=== PATIENT | male | born 2000 | race Caucasian/White ===

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

== ENCOUNTER 2019-05-16 19:24 | Emergency (ER) | payer BC ==
[2019-05-16] MEDS ORDERED: methylPREDNISolone SUCCINATE 125 MG/2 ML VIAL IVP STA (19:42)
[2019-05-16] MEDS ORDERED: ALBUTEROL NEB 2.5 MG/3 ML INH STA (19:43)
--- NOTE | 2019-05-16 19:50 | ED Physician Documentation ---
History of Present Illness - Stated complaint Stated Complaint: SOA - Chief complaint Chief Complaint: Resp - Additonal information Additional information: This is a 18-year-old male who denies past medical history presents with shortness of breath. He has had a bit of shortness of breath throughout the week and it worsened today. He denies any history of asthma or COPD. He vapes once in a while, denies smoking. He denies any chest pain, fever. he has had a cough for the last several days. No leg swelling. He does have a history of environmental allergies. No hemoptysis or leg swelling. Review of Systems Constitutional: denies: Fever Cardiac: denies: Chest pain / pressure Respiratory: reports: Dyspnea GI: denies: Abdominal Pain, Vomiting : denies: Dysuria Skin: denies: Rash Neurologic: denies: Generalized weakness Immunocompromised: denies: Immunocompromised PD PAST MEDICAL HISTORY - Past Medical History Past Medical History: No Cardiovascular: None Respiratory: None Neuro: None Endocrine/Autoimmune: None GI: None : None HEENT: None Psych: None Musculoskeletal: None Derm: None - Past Surgical History Past Surgical History: No - Present Medications Home Medications: Ambulatory Orders Medication Instructions Recorded Confirmed Albuterol Sulf [Ventolin Hfa 1 - 2 puffs INH Q4HR PRN #1 inhaler 05/16/19 Inhaler] predniSONE [Prednisone] 40 mg PO DAILY #6 tablet 05/16/19 - Allergies Allergies/Adverse Reactions: Allergies Allergy/AdvReac Type Severity Reaction Status Date / Time No Known Drug Allergies Allergy Verified 05/16/19 19:33 - Social History Does the pt smoke?: No Smoking Status: Never smoker Does the pt drink ETOH?: No Does the pt have substance abuse?: No - Immunizations Immunizations are current?: Yes - POLST Patient has POLST: No PD ED PE NORMAL - Vitals Vital signs reviewed: Yes - General General: Alert and oriented X 3 - HEENT HEENT: PERRL - Neck Neck: Supple, no meningeal sign - Cardiac Cardiac: No murmur, Other (Tachycardic, regular rhythm) - Respiratory Respiratory: Other (Diffuse expiratory wheezing bilaterally) - Abdomen Abdomen: Normal bowel sounds, Soft, Non tender, Non distended - Derm Derm: Warm and dry - Extremities Extremities: No deformity - Neuro Neuro: Alert and oriented X 3 - Psych Psych: Normal mood, Normal affect Results - Vitals Vitals: Vital Signs - 24 hr 05/16/19 05/16/19 05/16/19 19:28 19:56 19:57 Temperature 37.1 C Heart Rate 109 H 102 H Respiratory 19 18 16 Rate Blood Pressure 143/89 H O2 Saturation 95 05/16/19 05/16/19 05/16/19 20:11 21:14 21:25 Temperature Heart Rate 83 88 92 Respiratory 17 16 16 Rate Blood Pressure 122/80 126/85 H O2 Saturation 96 95 Oxygen O2 Source Room air - EKG (time done) 19:54 Other comments: Other comments (Rate 94, rhythm sinus, no significant ST elevation on my interpretation, no ST depression, intervals within normal limits.) - Labs Labs: Laboratory Tests 05/16/19 05/16/19 05/16/19 20:00 20:00 20:00 WBC 12.3 H RBC 5.80 Hgb 16.2 Hct 47.3 MCV 81.6 MCH 27.9 MCHC 34.2 RDW 13.6 Plt Count 422 MPV 9.7 Neut # (Auto) Not Reportable Lymph # (Auto) Not Reportable [place] # (Auto) Not Reportable Eos # (Auto) Not Reportable Baso # (Auto) Not Reportable Absolute Nucleated RBC Not Reportable Total Counted 100 Band Neuts % (Manual) 1 Abnorm Lymph % (Manual) 0 Nucleated RBC % Not Reportable Neutrophils # (Manual) 8.7 H Lymphocytes # (Manual) 1.6 Monocytes # (Manual) 0.9 Eosinophils # (Manual) 1.1 H Basophils # (Manual) 0.0 Differential Comment MANUAL DIFFERENTIAL Manual Slide Review Indicated WBC Morphology NORMAL APPEARANCE Platelet Estimate NORMAL (130-450,000) Platelet Morphology NORMAL APPEARANCE RBC Morph Micro Appear NORMAL APPEARANCE Sodium 135 Potassium 4.0 Chloride 100 L Carbon Dioxide 24 Anion Gap 11.0 BUN 14 Creatinine 0.9 Estimated GFR (MDRD) 109 Glucose 99 Calcium 9.6 Total Bilirubin 1.2 H AST 30 ALT 31 Alkaline Phosphatase 76 Troponin I High Sens < 2.3 L Total Protein 8.8 H Albumin 5.0 Globulin 3.8 Albumin/Globulin Ratio 1.3 Lipase 26 - Rads (name of study) CXR Radiology: Other (No acute cardiopulmonary abnormality) PD MEDICAL DECISION MAKING - ED course Complexity details: considered differential (Asthma, reactive airway disease, pneumonia, pneumothorax, coronavirus, PE) ED course: Patient arrives tachycardic, he has diffuse expiratory wheezing. IV was inserted, labs were drawn, patient was placed on the monitor. He was given alb uterol via metered-dose inhaler, and had had near immediate improvement in his symptoms. On repeat evaluation his wheezing has improved. His EKG does not show convincing signs of ischemia or dysrhythmia, troponin is negative, patient does not have chest pain, cardiac etiology of his shortness of breath is highly unlikely. Labs show a mild leukocytosis which is nonspecific and may be demargination due to his respiratory distress, CMP is unremarkable. X-ray shows no acute cardiopulmonary abnormality. We does not have a clear history of asthma, he does have environmental allergies, and reactive airway disease/asthma does appear most likely. We will swab him for coronavirus given his cough, though he has not had fever. Patient was observed in the emergency department and continued to be well-appearing, his breathing was normal, his tachycardia resolved, ox saturation is excellent on room air, and his lungs are clear. He would not be able to go to a pharmacy to get an albuterol inhaler tonight, so we gave him additional albuterol treatment before discharge. He received Solu- Medrol while here and I prescribed him a 3-day burst of prednisone as well. I discussed primary care follow-up, return precautions to the emergency department, and patient was discharged in very good condition. Departure - Departure Disposition: 01 Home, Self Care Clinical Impression: Reactive airway disease with wheezing Qualifiers: Asthma severity: unspecified severity Asthma persistence: unspecified Asthma complication type: with acute exacerbation Qualified Code(s): J45.901 - Unspecified asthma with (acute) exacerbation Condition: Good Prescriptions: Albuterol Sulf [Ventolin Hfa Inhaler] 1 - 2 puffs INH Q4HR PRN #1 inhaler PRN Reason: Shortness Of Air/Wheezing predniSONE [Prednisone] 40 mg PO DAILY #6 tablet Comments: You were seen today for wheezing and shortness of breath, your chest x-ray and your labs are reassuring, I am glad you are felt better after the inhaler. This apperas to be on the spectrum of asthma or reactive airway disease, I am prescribing you an inhaler as well as several days of steroids to use. If you are having worsening symptoms such as increasing shortness of breath, coughing up blood, return to the emergency department. We have also swabbed you for coronavirus, these results have been taking up to 5 days to come back, in the meantime please self isolate, practice good hand hygiene, cover your cough, get plenty of rest and drink adequate fluids. Follow up with your PCP. Discharge Date/Time: 05/16/19 21:45
[2019-05-16 20:16] LABS: BASOPHILS % (AUTO) 0.8 %; EOSINOPHILS % (AUTO) 8.8 %; HGB - HEMOGLOBIN 16.2 g/dL (14.0-18.0); LYMPHOCYTES % (AUTO) 27.2 %; MEAN CORPUSCULAR HEMOGLOBIN 27.9 pg (27.0-31.0); MEAN CORPUSCULAR HGB CONC 34.2 g/dL (32.0-36.0); MEAN CORPUSCULAR VOLUME 81.6 fL (80.0-94.0); MEAN PLATELET VOLUME 9.7 fL (7.4-11.4); MONOCYTES % (AUTO) 9.7 %; NEUTROPHILS % (AUTO) 52.5 %; PLT - PLATELET COUNT 422 10^3/uL (130-450); RED CELL DISTRIBUTION WIDTH 13.6 % (12.0-15.0); WHITE BLOOD COUNT 12.3 x10^3/uL (4.8-10.8)
[2019-05-16 20:18] LABS: ABNORMAL LYMPHS % (MANUAL) 0 %
[2019-05-16 20:28] LABS: ALBUMIN/GLOBULIN RATIO 1.3 (1.0-2.2); BILIRUBIN,TOTAL 1.2 mg/dL (0.2-1.0); CALCIUM 9.6 mg/dL (8.5-10.3); CREATININE 0.9 mg/dL (0.6-1.2); TOTAL PROTEIN 8.8 g/dL (6.7-8.2)
[2019-05-16 20:30] LABS: BAND NEUTROPHILS % (MANUAL) 1 %; EOSINOPHILS # (MANUAL) 1.1 10^3/uL (0-0.7); LYMPHOCYTES # (MANUAL) 1.6 10^3/uL (1.5-3.5); LYMPHOCYTES % (MANUAL) 13 %; MONOCYTES # (MANUAL) 0.9 10^3/uL (0.0-1.0)
[2019-05-16 20:31] LABS: DIFFERENTIAL COMMENT MANUAL DIFFERENTIAL; PLATELET ESTIMATE, MANUAL NORMAL (130-450,000) (NORMAL); PLATELET MORPHOLOGY NORMAL APPEARANCE (NORMAL); RBC MORPHOLOGY (MULTIPLE) NORMAL APPEARANCE (NORMAL)
--- NOTE | 2019-05-16 20:32 | XRAY Report ---
Reason: Chest Pain Procedure Date: 05/16/2019 Accession Number: [id number] / [id number] Procedure: XR - Chest 1 View X-Ray CPT Code: 28999 Final Report FULL RESULT: EXAM: CHEST RADIOGRAPHY EXAM DATE: 05/16/2019 08:01 PM. CLINICAL HISTORY: Chest Pain. COMPARISON: None. TECHNIQUE: 1 view. FINDINGS: Lungs/Pleura: No dense consolidation. No large effusion or pneumothorax. No pulmonary edema. Mediastinum: Heart and mediastinal contours are unremarkable. Other: None. IMPRESSION: No acute radiographic pulmonary abnormalities. [facility]
[2019-05-16] MEDS ORDERED: IPRATROPIUM/ALBUTEROL 3 ML NEB INH STA (20:57)
[2019-05-16 21:36] VITALS: BP 126/85
== END 2019-05-16 21:45 | disposition home or self-care (01) ==
LOC: ED 19:24
DX: J45.901 Unspecified asthma with (acute) exacerbation (principal); R00.0 Tachycardia, unspecified
CPT/HCPCS: 36415; 71045; 80053; 83690; 83880; 84484; 85025; 93005; 94640; 96374; 99283